=== PATIENT | female | born 1995 | race Caucasian/White ===

== ENCOUNTER 2019-05-03 12:40 | Emergency (ER) | payer BC ==
[~2019-05-03] VITALS: Ht 175.3 cm; Wt 122.5 kg
[~2019-05-03 12:40] MED LIST: ALBU0.63 IH; PROAIR
[2019-05-03 12:45] VITALS: BP_SYST 140
--- NOTE | 2019-05-03 12:58 | NUR ---
Patient to ER bed 06 to gown for evaluation. Side rails up.
--- NOTE | 2019-05-03 13:02 | NUR ---
Pt AAOx4 ambulated into ED c/o RLQ pain x 2 hours accompanying loose stool. Pt denies n/v/d/sob/cp. Skin pink dry and warm, breathing even and unlabored. No other injuries/complaints per pt/noted. Will continue to monitor.
--- NOTE | 2019-05-03 13:14 | NUR ---
Pt taken to radiology via wheelchair in stable condition
[2019-05-03] MEDS ORDERED: MORPHINE 4 MG/ML INJ. SYRINGE IVP ONE (13:15)
--- NOTE | 2019-05-03 13:35 | NUR ---
Report from Bushra ROSE. Patient sitting up in [facility], at bedside.
[2019-05-03 13:36] LABS: BILIRUBIN,URINE NEGATIVE (NEGATIVE); BLOOD, URINE 1+ (NEGATIVE); CLARITY/URINE CLEAR (CLEAR); COLOR,URINE YELLOW (YELLOW); GLUCOSE,URINE NEGATIVE (NEGATIVE); KETONES,URINE TRACE (NEGATIVE); LEUKOCYTE ESTERASE ,URINE NEGATIVE (NEGATIVE); NITRITE, URINE NEGATIVE (NEGATIVE); PH,URINE 5.5 (5.0-8.0); PROTEIN URINE NEGATIVE (NEGATIVE); UROBILINOGEN,URINE 0.2 (0.2-1.0)
[2019-05-03 13:41] LABS: BASOPHILS % (AUTO) 0.4 % (0.0-2.0); EOSINOPHILS # (AUTO) 0.3 K/uL (0.0-0.4); HEMATOCRIT 40.7 % (36-48); HEMOGLOBIN 14.1 g/dL (12.0-16.0); LYMPHOCYTES # (AUTO) 2.4 K/uL (1.0-5.5); LYMPHOCYTES % (AUTO) 24.3 % (20.5-51.5); MEAN CORPUSCULAR HEMOGLOBIN 30 pg (27-31); MEAN CORPUSCULAR HGB CONC 35 % (32-36); MEAN CORPUSCULAR VOLUME 85 fL (79.0-98.0); MONOCYTES # (AUTO) 0.6 K/uL (0.0-1.0); MONOCYTES % (AUTO) 5.7 % (1.7-9.3); NEUTROPHILS # (AUTO) 6.7 K/uL (1.8-7.7); NEUTROPHILS % (AUTO) 66.6 % (40.0-70.0); PLATELET COUNT (AUTO) 383 K/uL (130-430); RED BLOOD CELL COUNT(AUTO) 4.78 MIL/uL (4.2-6.2); RED CELL DISTRIBUTION WIDTH 13.8 % (9.0-15.0)
[2019-05-03 13:43] LABS: BACTERIA,URINE FEW /HPF (None Seen); RBC,URINE 0-3 /HPF (0-3); WBC,URINE 0-3 /HPF (0-3)
[2019-05-03 13:54] LABS: CALCIUM 9.1 mg/dL (8.4-11.0); CREATININE 0.87 mg/dL (0.55-1.30)
[2019-05-03 14:00] LABS: TOTAL BILIRUBIN 0.3 mg/dL (0.0-1.0)
[2019-05-03 14:19] VITALS: BP_SYST 136
--- NOTE | 2019-05-03 14:19 | NUR ---
Patient given written and verbal discharge instructions and verbalizes understanding. ER MD Bloom discussed with patient the results and treatment provided. Patient in stable condition. ID arm band removed. No Rx given. Patient educated on pain management and to follow up with PMD. Pain Scale 0. Opportunity for questions provided and answered. Medication side effect fact sheet provided.
== END 2019-05-03 14:19 | disposition home or self-care (01) ==
LOC: SED 12:40
DX: K59.00 Constipation, unspecified (principal)
CPT/HCPCS: 36415; 74176; 80053; 81000; 81025; 83690; 85025; 96374; 99284; J2270

== ENCOUNTER 2019-09-13 15:46 | Inpatient (IN) | payer BC ==
[~2019-09-13] VITALS: Ht 172.7 cm; Wt 124.7 kg
[2019-09-13 15:46] VITALS: BP_SYST 134
[2019-09-13] MEDS ORDERED: NACL 0.9% 1,000 ML IV ONE (16:00)
[2019-09-13] MEDS ORDERED: NS 1000 ML IV.SOLN IV ONE (16:00)
[2019-09-13] MEDS ORDERED: MORPHINE 4 MG/ML INJ. SYRINGE IVP ONE (16:00)
[2019-09-13] MEDS ORDERED: ONDANSETRON HCL 4 MG/2 ML VIAL IVP ONE (16:00)
[2019-09-13] MEDS ORDERED: cefTRIAXone 1 GM IVPB PREMIX 50 ML IV ONE (16:00)
--- NOTE | 2019-09-13 16:00 | NUR ---
Patient to ER bed 4 to gown for evaluation. Side rails up.
--- NOTE | 2019-09-13 16:05 | NUR ---
pt arrives from urgent care w/ c/o right upper and lower quadrant pain 8/10 since this am. Pt also reports nausea and STEWART. piccoloist placed.
--- NOTE | 2019-09-13 16:09 | NUR ---
ER at bedside examining patient.
--- NOTE | 2019-09-13 16:30 | NUR ---
# 24 gauge angiocath placed to RAC. Use of asceptic technique. Opsite placed over site. Blood return noted. Blood for lab drawn from site. Flushed with 10 cc of normal saline. No evidence of infiltration noted. Patient tolerated well.
--- NOTE | 2019-09-13 16:45 | NUR ---
medicated the pt w/ Zofran and Morphne IVP per MD order. Will reassess.
--- NOTE | 2019-09-13 17:00 | NUR ---
Recephin IVPB and NS bolus currently infusing. Blood cx drawn prior to giving IV antibiotics.
[2019-09-13 17:18] LABS: BASOPHILS % (AUTO) 0.1 % (0.0-2.0); EOSINOPHILS % (AUTO) 0.1 % (0.0-4.0); HEMATOCRIT 41.6 % (36-48); HEMOGLOBIN 14.2 g/dL (12.0-16.0); LYMPHOCYTES # (AUTO) 1.2 K/uL (1.0-5.5); MEAN CORPUSCULAR HEMOGLOBIN 29 pg (27-31); MEAN CORPUSCULAR HGB CONC 34 % (32-36); MEAN CORPUSCULAR VOLUME 86 fL (79.0-98.0); MONOCYTES # (AUTO) 0.6 K/uL (0.0-1.0); MONOCYTES % (AUTO) 4.1 % (1.7-9.3); NEUTROPHILS # (AUTO) 13.7 K/uL (1.8-7.7); NEUTROPHILS % (AUTO) 87.7 % (40.0-70.0); PLATELET COUNT (AUTO) 372 K/uL (130-430); RED BLOOD CELL COUNT(AUTO) 4.85 MIL/uL (4.2-6.2); RED CELL DISTRIBUTION WIDTH 13.8 % (9.0-15.0); WHITE BLOOD COUNT (AUTO) 15.6 K/uL (4.8-10.8)
--- NOTE | 2019-09-13 17:20 | NUR ---
Patient transported to Ct scan, accompanied by radiology resident. Pt does not want to provide a test prior to CT. test waiver signed
[2019-09-13 17:27] LABS: ANION GAP 11 (5-15); CALCIUM 8.9 mg/dL (8.4-11.0); CHLORIDE 102 mmol/L (98-107); CREATININE 0.74 mg/dL (0.55-1.30); GLUCOSE 112 mg/dL (70-99); POTASSIUM 3.8 mmol/L (3.5-5.1); SODIUM SERUM 136 mmol/L (136-145); UREA NITROGEN, BLOOD 10 mg/dL (8-21)
[2019-09-13 17:28] LABS: ALANINE AMINOTRANSFERASE 24 U/L (12-78); ALBUMIN 3.1 g/dL (3.4-4.8); AMYLASE 33 U/L (0-100); ASPARTATE AMINOTRANSFERASE 12 U/L (10-37); LIPASE 91 U/L (73-393); TOTAL BILIRUBIN 0.4 mg/dL (0.0-1.0)
[2019-09-13 17:31] LABS: ALCOHOL, BLOOD < 3 mg/dL (<10); GFR AFRICAN AMERICAN 125 mL/min (>90)
[2019-09-13 18:15] LABS: PROTHROMBIN TIME 10.3 SECS (9.5-12.5)
--- NOTE | 2019-09-13 18:38 | NUR ---
SPOKE WITH DR PARRA, STATES TO CALL DR AKUA ROBLERO
[2019-09-13] MEDS ORDERED: PROCHLORPERAZINE EDISYLATE 10 MG/2 ML VIAL IVP ONE (18:45)
--- NOTE | 2019-09-13 19:08 | NUR ---
DR. Barrientos at the bedside speaking w/ the pt and her family.
--- NOTE | 2019-09-13 19:11 | NUR ---
Report received from Alicia ROSE. All care endorsed.
--- NOTE | 2019-09-13 19:37 | NUR ---
ROSE Daniels at bedside attempting IV access.
[2019-09-13] MEDS ORDERED: ACETAMINOPHEN 325 MG TABLET PO PRN ×2 (19:45)
[2019-09-13] MEDS ORDERED: MORPHINE 4 MG/ML INJ. SYRINGE IVP PRN (19:45)
[2019-09-13] MEDS ORDERED: ONDANSETRON HCL 4 MG/2 ML VIAL IVP PRN ×2 (19:45→21:30)
--- NOTE | 2019-09-13 20:30 | NUR ---
Pt off unit to OR with OR nurse via rlouisa in stable condition.
[2019-09-13] MEDS ORDERED: HYDROmorphone 1 MG INJ. 1 MG/ML AMPUL IVP PRN ×2 (21:30)
[2019-09-13] MEDS ORDERED: ONDANSETRON HCL 4 MG/2 ML VIAL ONE (21:56)
[2019-09-13] MEDS ORDERED: PROPOFOL 200MG/ 20ML VIAL (DIPRIVAN) IV ONE (21:56)
[2019-09-13] MEDS ORDERED: SEVOFLURANE 15 MIN GAS INH ONE (21:56)
[2019-09-13] MEDS ORDERED: fentaNYL CITRATE/PF 100 MCG/2 ML AMP ONE (21:56)
[2019-09-13] MEDS ORDERED: DEXAMETHASONE SOD PHOSPHATE 4 MG/ML VIAL ONE (21:56)
[2019-09-13] MEDS ORDERED: MIDAZOLAM HCL 5 MG/ML VIAL (VERSED) IV ONE (21:56)
[2019-09-13] MEDS ORDERED: LR 1,000 ML IV.SOLN IV ONE (21:56)
[2019-09-13] MEDS ORDERED: HYDROmorphone 2 MG/ML VIAL ONE (21:56)
[2019-09-13] MEDS ORDERED: NS IRRIG SOLN 1000 ML IR ONE (21:56)
[2019-09-13] MEDS ORDERED: HYDROmorphone 1 MG INJ. 1 MG/ML AMPUL ONE (22:25)
--- NOTE | 2019-09-13 22:36 | NUR ---
ADMISSION NOTE Received patient from OR via [facility]. Patient admitted with diagnosis of ACUTE APPENDICITIS. Patient is awake, alert, oriented X 4. Patient oriented to hospital room, call light, toileting, pain management and safety-teach back done. Patient informed that TERRI will be HER nurse and that their room number is 117B. Personal belongings checked and Belongings List documented. Call light within reach.
[2019-09-13] MEDS: HYDROmorphone 2 MG/ML VIAL IVP PRN (22:48)
--- NOTE | 2019-09-13 22:50 | NUR ---
PAIN/DILAUDID PT REPORTING SEVERE 8/10 ABDOMINAL PAIN. DILAUDID 1 MG IVP ADMINISTERED ORDERED PRN FOR SEVERE PAIN. MEDICATION ACTION AND POTENTIAL SIDE EFFECTS DISCUSSED. SAFETY PRECAUTIONS ARE IN PLACE. WILL MONITOR.
[2019-09-13] MEDS: D5/0.45 NS 1,000 ML IV SCH (22:52)
[2019-09-13 23:00] VITALS: BP_SYST 148
[2019-09-13 23:10] VITALS: BP_SYST 131
--- NOTE | 2019-09-13 23:15 | NUR ---
INCENTIVE SPIROMETER PROVIDED TO PT. TEACHING PROVIDED.
[2019-09-14] MEDS ORDERED: HYDROcodone/ACETAMIN 5-325 MG TAB (NORCO/ VICODIN) PO PRN
[2019-09-14 00:39] VITALS: BP_SYST 128
--- NOTE | 2019-09-14 01:20 | NUR ---
SLEEPING PT RESTING IN BED, NO S/S OF ACUTE DISTRESS, BREATHING IS UNLABORED TO O2 VIA NC AT 2L, VISIBLE SYMMETRICAL RISE AND FALL OF CHEST NOTED. IVF INFUSING AT ORDERED RATE. SAFETY AND FALL PRECAUTIONS ARE IN PLACE, CALL LIGHT IS WITH PT. WILL MONITOR.
[2019-09-14 01:29] VITALS: BP_SYST 109
[2019-09-14] MEDS: D5/0.45 NS 1,000 ML IV SCH ×2 (04:30→12:15)
--- NOTE | 2019-09-14 04:30 | NUR ---
NORCO/ICE PACKS PT REQUESTING NORCO FOR PAIN. NORCO 5-325 MG PO ADMINISTERED. PT ALSO GIVEN ICE PACKS FOR INCISION SITE PAIN PER REQUEST. FRESH ICE CHIPS GIVEN PT. PT DENIES FURTHER NEEDS AT THIS TIME. SAFETY MAINTAINED. WILL MONITOR.
[2019-09-14] MEDS: HYDROmorphone 2 MG/ML VIAL IVP PRN ×3 (05:41→16:56)
--- NOTE | 2019-09-14 05:45 | NUR ---
DILAUDID/ZOFRAN PT GIVEN DILAUDID FOR SEVERE PAIN AND ZOFRAN FOR NAUSEA. MEDICATIONS EXPLAINED TO PT. PT RESTING IN BED, PT'S FATHER IS AT BEDSIDE. NO S/S OF ACUTE DISTRESS. SAFETY MAINTAINED. WILL MONITOR.
--- NOTE | 2019-09-14 07:30 | NUR ---
AM ROUNDS: PATIENT SLEEPING DURING ROUNDS. O2 2L/NC,LOW 02 SATURATION DURING SLEEPING. FAMILY AT THE BEDSIDE. CALL LIGHT WITH IN REACH. BED LOCKED AT LOWEST POSITION. CONDITION GUARDED.
--- NOTE | 2019-09-14 07:30 | NUR ---
CLOSING NOTE PATIENT SLEEPING DURING ROUNDS. O2 2L/NC,LOW 02 SATURATION DURING SLEEPING. FAMILY AT THE BEDSIDE. IS AT BEDISDE. IVF INFUSING. NO S/S OF ACUTE DISTRESS. PT HAS NOT URINATED YET-RN AWARE. CALL LIGHT WITH IN REACH. BED LOCKED AT LOWEST POSITION. CARE ENDORSED TO ROSE HAMM.
[2019-09-14 07:49] LABS: BASOPHILS % (AUTO) 0.1 % (0.0-2.0); HEMATOCRIT 38.1 % (36-48); HEMOGLOBIN 13.1 g/dL (12.0-16.0); LYMPHOCYTES % (AUTO) 5.7 % (20.5-51.5); MEAN CORPUSCULAR HEMOGLOBIN 30 pg (27-31); MEAN CORPUSCULAR HGB CONC 34 % (32-36); MEAN CORPUSCULAR VOLUME 87 fL (79.0-98.0); MONOCYTES # (AUTO) 0.5 K/uL (0.0-1.0); MONOCYTES % (AUTO) 2.7 % (1.7-9.3); NEUTROPHILS # (AUTO) 15.4 K/uL (1.8-7.7); NEUTROPHILS % (AUTO) 91.5 % (40.0-70.0); PLATELET COUNT (AUTO) 369 K/uL (130-430); RED CELL DISTRIBUTION WIDTH 13.6 % (9.0-15.0); WHITE BLOOD COUNT (AUTO) 16.8 K/uL (4.8-10.8)
[2019-09-14 08:15] VITALS: BP_SYST 139
[2019-09-14] MEDS ORDERED: ENOXAPARIN SODIUM 40 MG/0.4 ML SYRINGE SUBCUT SCH (09:00)
--- NOTE | 2019-09-14 10:30 | NUR ---
AMBULATES: PATIENT AMBULATING IN THE HALLWAY WITH FAMILY. NO ACUTE DISTRESS.
[2019-09-14 12:40] VITALS: BP_SYST 145
--- NOTE | 2019-09-14 16:00 | NUR ---
RN ROUNDS: PATIENT AMBULATING IN THE HALLWAY,WITH NO PROBLEM.
[2019-09-14 16:32] VITALS: BP_SYST 140
[2019-09-14] MEDS ORDERED: cefTRIAXone 1 GM IVPB PREMIX 50 ML IV ONE (17:15)
--- NOTE | 2019-09-14 17:16 | NUR ---
Surgeon Paged: Spoke with Dr. Barrientos and verified orders,give Rocephin 1gram iv once and dc home and f/u with surgeon in 10days.Stay on Full liquid diet.
[2019-09-14 18:58] VITALS: BP_SYST 140
--- NOTE | 2019-09-14 19:00 | NUR ---
CLOSING NOTES: ENDORSED TO NIGHT NURSE PAULINO,PATIENT DC HOME AFTER IV ROCEPHIN IS DONE. PATIENT AND MOTHER INFORMED. NO PAIN THIS TIME.
--- NOTE | 2019-09-14 20:00 | NUR ---
D/C INSTRUCTIONS GIVEN TO HER MOTHER & VERBALIZED UNDERSTANDING OF THE INSTRUCTIONS GIVEN.IV D/C.
--- NOTE | 2019-09-14 21:00 | NUR ---
WENT HOME VIA W/C IN STABLE CONDITION WITH HER MOTHER.
== END 2019-09-14 21:00 | disposition home or self-care (01) | DRG 343 ==
LOC: SED 15:46 → SMU 19:35
PROVIDERS: ADMIT Surgery; ATTEND Surgery
PROC: 0DTJ4ZZ Resection of Appendix, Percutaneous Endoscopic Approach (ICD-10-PCS; principal; 2019-09-13 20:00)
DX: K35.80 Unspecified acute appendicitis (principal); K38.1 Appendicular concretions; Z79.899 Other long term (current) drug therapy
CPT/HCPCS: 36415; 71045; 80053; 82150-TC; 83605; 83690-TC; 85025; 85610-TC; 85730-TC; 86886; 86900; 86901; 87040-TC; 88304; 96361; 96365; 96375; 99285; C1727; G0481; G0482; J0696; J0780; J1100; J1170; J1650; J2250; J2270; J2405; J2704; J3010; J7030; J7120

== ENCOUNTER 2019-10-05 14:31 | Emergency (ER) | payer BC ==
[~2019-10-05] VITALS: Ht 175.3 cm; Wt 122.5 kg
--- NOTE | 2019-10-05 14:51 | NUR ---
Patient to ER bed 02 to gown for evaluation. Side rails up.
--- NOTE | 2019-10-05 15:00 | NUR ---
Patient arrived in the ED c/o abdominal pain with nausea, vomiting and diarrhea that started yesterday. Denied any chest pain or shortness of breath. Denied any fevers, nausea, vomiting, or chills. Patient is alert and oriented x4, respirations even and unlabored, speaking in full sentences, ambulating with a steady gait. VSS, pain level 7/10. Informed of wait time. Instructed to notify ED staff for any changes in condition or worsening of symptoms. Patient verbalized understanding.
[2019-10-05 15:07] VITALS: BP_SYST 144
--- NOTE | 2019-10-05 15:15 | NUR ---
ER Dr. Gallegos at bedside examining patient.
--- NOTE | 2019-10-05 15:28 | NUR ---
security technician at bedside collecting blood specimen as ordered by Dr. Gallegos. Patient tolerated the procedure well.
--- NOTE | 2019-10-05 15:31 | NUR ---
CT consent signed.
--- NOTE | 2019-10-05 15:35 | NUR ---
# 20 gauge angiocath placed to LAC. Use of asceptic technique. Opsite placed over site. Blood return noted. Flushed with 10 cc of normal saline. No evidence of infiltration noted. Patient tolerated well.
[2019-10-05] MEDS ORDERED: ONDANSETRON HCL 4 MG/2 ML VIAL IVP ONE ×2 (15:45→17:00)
[2019-10-05] MEDS ORDERED: MORPHINE 4 MG/ML INJ. SYRINGE IVP ONE (15:45)
[2019-10-05 15:49] LABS: BASOPHILS % (AUTO) 0.2 % (0.0-2.0); EOSINOPHILS # (AUTO) 0.1 K/uL (0.0-0.4); EOSINOPHILS % (AUTO) 0.7 % (0.0-4.0); HEMATOCRIT 43.3 % (36-48); HEMOGLOBIN 14.6 g/dL (12.0-16.0); LYMPHOCYTES # (AUTO) 0.9 K/uL (1.0-5.5); LYMPHOCYTES % (AUTO) 11.5 % (20.5-51.5); MEAN CORPUSCULAR HEMOGLOBIN 29 pg (27-31); MEAN CORPUSCULAR HGB CONC 34 % (32-36); MEAN CORPUSCULAR VOLUME 86 fL (79.0-98.0); MONOCYTES # (AUTO) 0.6 K/uL (0.0-1.0); MONOCYTES % (AUTO) 7.1 % (1.7-9.3); NEUTROPHILS # (AUTO) 6.6 K/uL (1.8-7.7); NEUTROPHILS % (AUTO) 80.5 % (40.0-70.0); PLATELET COUNT (AUTO) 333 K/uL (130-430); RED BLOOD CELL COUNT(AUTO) 5.04 MIL/uL (4.2-6.2); RED CELL DISTRIBUTION WIDTH 13.6 % (9.0-15.0); WHITE BLOOD COUNT (AUTO) 8.2 K/uL (4.8-10.8)
[2019-10-05 15:56] LABS: CALCIUM 8.8 mg/dL (8.4-11.0); CREATININE 0.81 mg/dL (0.55-1.30); POTASSIUM 4.2 mmol/L (3.5-5.1)
[2019-10-05 16:02] LABS: ALBUMIN 2.9 g/dL (3.4-4.8); TOTAL BILIRUBIN 0.4 mg/dL (0.0-1.0)
--- NOTE | 2019-10-05 16:03 | NUR ---
Patient ambulated to the bathroom with a steady gait. Urine specimen collected. Urine preg done.
[2019-10-05 16:25] LABS: BILIRUBIN,URINE 1+ (NEGATIVE); BLOOD, URINE NEGATIVE (NEGATIVE); COLOR,URINE YELLOW (YELLOW); GLUCOSE,URINE NEGATIVE (NEGATIVE); KETONES,URINE 3+ (NEGATIVE); LEUKOCYTE ESTERASE ,URINE NEGATIVE (NEGATIVE); NITRITE, URINE NEGATIVE (NEGATIVE); PROTEIN URINE TRACE (NEGATIVE); UROBILINOGEN,URINE 0.2 (0.2-1.0)
[2019-10-05 16:40] LABS: CLARITY/URINE SLIGHTLY HAZY (CLEAR)
[2019-10-05 16:55] LABS: BACTERIA,URINE FEW /HPF (None Seen); MUCUS,URINE 2+ /LPF (None Seen); RBC,URINE 0-3 /HPF (0-3); WBC,URINE 0-3 /HPF (0-3)
[2019-10-05 16:58] LABS: INR 1.1 (0.8-1.2)
--- NOTE | 2019-10-05 17:03 | NUR ---
Patient resting comfortably in bed. No acute distress noted. Vital signs within normal range.
[2019-10-05] MEDS ORDERED: IOHEXOL 100 ML IV ONE (17:16)
[2019-10-05] MEDS ORDERED: NACL 0.9% 1,000 ML IV ONE ×2 (18:00)
[2019-10-05] MEDS ORDERED: IBUPROFEN 800 MG TABLET PO ONE (18:00)
--- NOTE | 2019-10-05 18:18 | NUR ---
Medicated per MD orders. IVF infusing with no s/s of infiltration at this time. Will cont to monitor
[2019-10-05 19:08] VITALS: BP_SYST 144
--- NOTE | 2019-10-05 19:14 | NUR ---
Patient given written and verbal discharge instructions and verbalizes understanding. ER MD discussed with patient the results and treatment provided. Patient in stable condition. ID arm band removed. Rx of Zofran and Motrin given. Patient educated on pain management and to follow up with PMD. Pain Scale 0/10. Opportunity for questions provided and answered. Medication side effect fact sheet provided.
== END 2019-10-05 19:08 | disposition home or self-care (01) ==
LOC: SED 14:31
DX: R10.31 Right lower quadrant pain (principal); R11.2 Nausea with vomiting, unspecified; R19.7 Diarrhea, unspecified; J45.909 Unspecified asthma, uncomplicated
CPT/HCPCS: 36415; 74177; 80053; 81000; 81025; 82150; 83605; 83690; 84703; 85025; 85610; 85730; 96374; 96375; 96376; 99285; J2270; J2405; 99284; Q9967